=== PATIENT | female | born 2005 | race Caucasian/White ===

== ENCOUNTER 2024-08-04 19:03 | Emergency (ER) | payer SELFPAY ==
[2024-08-04] MEDS ORDERED: HYDROCODONE/APAP 5/325 MG TAB ONE (19:41)
[2024-08-04] MEDS ORDERED: AMOX/K CLAV 875 MG TAB ONE (19:41)
--- NOTE | 2024-08-04 19:41 | ER ---
Nurse's Notes [facility] Name: Liz Woo Age: 19 yrs Sex: Female : 2005 Arrival Date: 08/04/2024 Time: 19:03 Bed IW4 Private MD: Diagnosis: Acute serous otitis media, right ear Presentation: 08/04 19:34 Chief complaint: Patient states: Right ear pain onset 4 days ago that got worse last cm10 night. Coronavirus screen: Client denies travel out of the [place] in the last 14 days. Ebola Screen: Patient denies travel to an Ebola-affected area in the 21 days before illness onset. No symptoms or risks identified at this time. Initial Sepsis Screen: Does the patient meet any 2 criteria? HR > 90 bpm. Does the patient have a suspected source of infection? No. Patient's initial sepsis screen is negative. Risk Assessment: Do you want to hurt yourself or someone else? Patient reports no desire to harm self or others. Onset of symptoms was July 31, 2024. 19:34 Method Of Arrival: Ambulatory cm10 19:34 Acuity: ALICJA 4 cm10 Triage Assessment: 19:37 General: Appears in no apparent distress. comfortable, Behavior is calm, cooperative. cm10 Pain: Complains of pain in right ear Pain currently is 6 out of 10 on a pain scale. Quality of pain is described as pressure, Pain began 2-3 days ago. EENT: Reports pain in right ear. Neuro: No deficits noted. Level of Consciousness is awake, alert, obeys commands, Oriented to person, place, time, situation, Appropriate for age. Respiratory: No deficits noted. Airway is patent Respiratory effort is even, unlabored, Respiratory pattern is regular, symmetrical. Musculoskeletal: No deficits noted. Range of motion: intact in all extremities. 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 - Infectious Disease History:: Denies. - Social history:: Smoking status: Patient reports the use of cigarette tobacco products, smokes one-half pack cigarettes per day. Screenin:37 [facility] ED Fall Risk Assessment (Adult) History of falling in the last 3 months, cm10 including since admission No falls in past 3 months (0 pts) Confusion or Disorientation No (0 pts) Intoxicated or Sedated No (0 pts) Impaired Gait No (0 pts) Mobility Assist Device Used No (0 pt) Altered Elimination No (0 pt) Score/Fall Risk Level 0 - 2 = Low Risk Oriented to surroundings, Maintained a safe environment, Hourly rounding (assess needs \T\ fall precautionary measures) done. Abuse screen: Denies threats or abuse. Denies injuries from another. Nutritional screening: No deficits noted. Tuberculosis screening: No symptoms or risk factors identified. Vital Signs: 19:34 BP 137 / 88; Pulse 91; Resp 16; Temp 98(IR); Pulse Ox 95% on R/A; Weight 63.5 kg; cm10 Height 5 ft. 6 in. ; Pain 6/10; 19:34 Body Mass Index 22.60 (63.50 kg, 167.64 cm) cm10 19:34 Pain Scale: Adult cm10 ED Course: 19:06 Patient arrived in ED. ra3 19:14 Charo Ceballos PA-C is PHCP. sb4 19:14 David Olmstead MD is Attending Physician. sb4 19:35 Triage completed. cm10 19:36 Arm band placed on right wrist. Patient placed in waiting room. cm10 19:38 Patient has correct armband on for positive identification. Provided Education on: ER cm10 process and procedures.. Cardiac monitoring not applicable on this patient. 19:48 No provider procedures requiring assistance completed. Patient did not have IV access cm10 during this emergency room visit. Administered Medications: 19:47 Drug: HYDROcodone-acetaminophen PO 5 mg-325 mg 1 tabs PO once Route: PO; cm10 19:47 Follow up: Response: Medication administered at discharge. cm10 19:47 Drug: Amoxicillin-Clavulanate PO 875 mg PO once Route: PO; cm10 19:47 Follow up: Response: Medication administered at discharge. cm10 Medication: 19:37 VIS not applicable for this client. cm10 Outcome: 19:41 Discharge ordered by . sb4 19:48 Discharged to home ambulatory, with significant other, cm10 19:48 Condition: good 19:48 Discharge instructions given to patient, Instructed on discharge instructions, follow up and referral plans. medication usage, Demonstrated understanding of instructions, follow-up care, medications, Prescriptions given X 1, 19:48 Patient left the ED. cm10 Signatures: Charo Ceballos PA-C PA-C sb4 Eileen Nassar RN RN cm10 Viry Anna ra3 Corrections: (The following items were deleted from the chart) 19:36 19:35 PMHx: None; cm10 cm10
--- NOTE | 2024-08-04 19:41 | EDPHYS ---
Physician Documentation [facility] [place] Name: Liz Woo Age: 19 yrs Sex: Female : 2005 Arrival Date: 08/04/2024 Time: 19:03 Bed IW4 Private MD: ED Physician David Olmstead HPI: 08/04 20:12 This 19 yrs old Female presents to ER via Ambulatory with complaints of Ear Pain. sb4 20:15 The patient presents with pain, that is acute. The complaints affect the right ear. sb4 Onset: The symptoms/episode began/occurred 2 day(s) ago. Modifying factors: The symptoms are alleviated by covering ear, the symptoms are aggravated by loud noise, touching. Associated signs and symptoms: Pertinent positives: tinnitus, rhinorrhea, sinus trouble. The patient has experienced similar episodes in the past, several times, as a child. The patient has not recently seen a physician. 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 - Infectious Disease History:: Denies. - Social history:: Smoking status: Patient reports the use of cigarette tobacco products, smokes one-half pack cigarettes per day. ROS: 20:15 Constitutional: Negative for fever, chills, and weight loss, sb4 20:15 ENT: Positive for ear pain, sinus congestion, 20:15 All other systems are negative, Exam: 20:15 Head/Face: Normocephalic, atraumatic. Eyes: Extra-ocular motions intact. Periorbital sb4 areas with no swelling, redness, or edema. Skin: Warm, dry with normal turgor. Normal color with no rashes, no lesions, and no evidence of cellulitis. MS/ Extremity: Pulses equal, no cyanosis. Neurovascular intact. Full, normal range of motion. 20:15 Constitutional: The patient appears alert, awake, uncomfortable, 20:15 ENT: Ear canal(s): swelling, that is minimal, of the right canal, TM's: bulging, on the right, erythema, that is moderate, on the right, Examination of the other ear shows no obvious abnormality, Vital Signs: 19:34 BP 137 / 88; Pulse 91; Resp 16; Temp 98(IR); Pulse Ox 95% on R/A; Weight 63.5 kg; cm10 Height 5 ft. 6 in. ; Pain 6/10; 19:34 Body Mass Index 22.60 (63.50 kg, 167.64 cm) cm10 19:34 Pain Scale: Adult cm10 MDM: 19:17 Medical Screening Exam initiated sb4 20:15 Data reviewed: vital signs, nurses notes, and as a result, I will discharge patient. sb4 Counseling: I had a detailed discussion with the patient and/or guardian regarding the historical points, exam findings, and any diagnostic results supporting the discharge/admit diagnosis, the presence of at least one elevated blood pressure reading (>120/80) during this emergency department visit, the need for outpatient follow up, for definitive care, to return to the emergency department if symptoms worsen or persist or if there are any questions or concerns that arise at home. Administered Medications: 19:47 Drug: HYDROcodone-acetaminophen PO 5 mg-325 mg 1 tabs PO once Route: PO; cm10 19:47 Follow up: Response: Medication administered at discharge. cm10 19:47 Drug: Amoxicillin-Clavulanate PO 875 mg PO once Route: PO; cm10 19:47 Follow up: Response: Medication administered at discharge. cm10 Disposition Summary: 08/04/24 19:41 Discharge Ordered Notes: Location: Home sb4 Problem: new sb4 Symptoms: have improved sb4 Condition: Stable sb4 Diagnosis - Acute serous otitis media, right ear sb4 Followup: sb4 - With: Emergency Department - When: As needed - Reason: Fever > 102 F, Worsening of condition Discharge Instructions: - Discharge Summary Sheet sb4 - Otitis Media, Adult sb4 Forms: - Antibiotic Education sb4 - Patient Portal Instructions sb4 - Leadership Thank You Letter sb4 Prescriptions: - Amoxicillin 875 mg Oral tablet - take 1 tablet ORAL route every 12 hours for 7 days; 14 tablet; Refills: 0, sb4 Product Selection Permitted Signatures: Charo Ceballos PA-C PA-C sb4 Eileen Nassar RN RN cm10 Corrections: (The following items were deleted from the chart) 19:36 19:35 PMHx: None; cm10 cm10
[2024-08-05 01:15] VITALS: BP 137/88; TEMP 98; O2SAT 95
== END 2024-08-04 19:48 | disposition home or self-care (01) ==
LOC: ER 19:03
DX: H65.01 Acute serous otitis media, right ear (principal); F17.210 Nicotine dependence, cigarettes, uncomplicated
CPT/HCPCS: 99283

== ENCOUNTER 2025-01-13 07:02 | Emergency (ER) | payer OTHER, SELFPAY ==
[2025-01-13 08:10] LABS: Specific Gravity 1.014 (1.005-1.030)
[2025-01-13 08:11] LABS: Absolute Lymphocytes (CBC) 1.6 K/uL (0.7-4.9); Absolute Monocytes 0.4 K/uL (0.1-1.3); Absolute Neutrophil 9.5 K/uL (1.8-8.0); Basophils % 0.3 % (0-1.3); Eosinophils % 0.3 % (0-4.4); Hematocrit 32.8 % (36.0-45.0); Hemoglobin 11.3 g/dL (12.0-15.0); Lymphocytes % 13.6 % (15.3-44.8); MCH 30.6 pg (27.0-35.0); MCHC 34.4 g/dL (32.0-36.0); MCV 89.2 fL (80-100); MPV 8.7 fL (7.6-11.3); Monocytes % 3.1 % (3.3-12.3); Neutrophils % 82.7 % (41.7-73.7); Nucleated Red Blood Cells % 0.1 % (0-0); Platelets 218 thou/uL (152-406); RBC Red Blood Cell Count 3.67 M/uL (3.86-4.86)
[2025-01-13 08:11] LABS: Specific Gravity 1.014 (1.005-1.030); Sqamous Epithelial <5 /HPF (None Seen); Urine Bacteria <20 /HPF (<20); Urine Bilirubin NEGATIVE (Negative); Urine Blood 2+ (Negative); Urine Clarity Turbid (Clear); Urine Color Light-Yellow (Yellow); Urine Culture Reflex Order NOT NEEDED; Urine Glucose NEGATIVE (Negative); Urine Ketones NEGATIVE (Negative); Urine Microscopic Reflex YN ORDER UMIC; Urine Nitrite NEGATIVE (Negative); Urine Protein NEGATIVE (Negative); Urine RBC <5 /HPF (None Seen); Urine Urobilinogen Normal (Normal); Urine WBC <5 /HPF (<5); Urine pH 7.5 (5.0-7.0)
--- NOTE | 2025-01-13 08:30 | RAD REPORT ---
EXAMINATION: US OB Limited COMPARISON: None. HISTORY: [facility] MAIN ABD CRAMPING, Bed Name: 5 TECHNIQUE: Real-time ultrasound was performed through the pelvis. A transvaginal scan was performed t o better visualize the intrauterine contents and adnexa. FINDINGS: There is a single living intrauterine . There is no visible collection/hemorrhage. Uterine contraction anteriorly. Cervical canal closed, shadowing prevents optimal visualization. Ovaries not well visualized. anatomy not well assessed, recommend follow-up formal assessment at the time of anatomical feta l survey (20 weeks gestation). There is no free fluid in the cul-de-sac. Measurements and Calculations: Femur length 2.42 cm, consistent with a sonographic age of 17 weeks, 2 days. The patient's LMP dates are not stated. heart rate: 138 BPM. IMPRESSION: Single living intrauterine , with a composite sonographic age of 17 weeks, 2 days. No discrete abnormalities.
[2025-01-13 08:42] LABS: Anion Gap 7.7 mEq/L (5.0-15.0); Potassium 3.7 mEq/L (3.5-5.1)
--- NOTE | 2025-01-13 08:48 | RAD REPORT ---
EXAMINATION: US Abdomen Exam Limited CLINICAL HISTORY: ABD CRAMPING, COMPARISON: None. TECHNIQUE: Limited upper abdominal grayscale and color flow sonographic images. FINDINGS: Gallbladder: Layering sludge with punctate hypoechogenicities. No sizable echogenic calculi. No peric holecystic fluid or wall thickening. No reported positive sonographic Sabillon's sign. Bile ducts: No intrahepatic or extrahepatic biliary dilatation. Common bile duct measures 1 mm. Liver: Visualized portions of the liver demonstrate normal echogenicity with no suspicious findings. Fluid: No ascites. IMPRESSION: Gallbladder sludge with punctate hypoechogenicities suggesting gravel or tiny calculi. No other abnor malities on right upper quadrant ultrasound.
[2025-01-13] MEDS ORDERED: NA CHLORIDE 0.9% 1,000 ML ONE (09:28)
[2025-01-13 09:45] LABS: Albumin 3.2 g/dL (3.4-5.0); Albumin/Globulin Ratio 0.9 (1.1-1.8); Alkaline Phosphatase 45 U/L (45-117); Bilirubin Total 0.4 mg/dL (0.2-1.0); Globulin 3.5 g/dL (2.3-3.5); Protein, Total 6.7 g/dL (6.4-8.2)
[2025-01-13 09:52] LABS: ALT/SGPT < 14 U/L (13-56); AST/SGOT < 10 U/L (15-37); Bilirubin Direct < 0.2 mg/dL (0-0.2); Bilirubin Indirect, Calculated 0.2 mg/dL (0.2-0.8)
--- NOTE | 2025-01-13 10:03 | EDPHYS ---
Physician Documentation [facility] Name: Liz Woo Age: 19 yrs Sex: Female : 2005 Arrival Date: 01/13/2025 Time: 07:02 Bed 5 Private MD: Amrik Sandra HPI: 01/13 09:00 This 19 yrs old Female presents to ER via Ambulatory with complaints of david Vaginal Bleeding, 16 WEEKS PREG. 09:00 The patient presents with vaginal bleeding that is spotting. Onset: The david symptoms/episode began/occurred 1 day(s) ago. Modifying factors: The symptoms are alleviated by nothing, the symptoms are aggravated by nothing. Associated signs and symptoms: The patient has no apparent associated signs or symptoms. Severity of symptoms: At their worst the symptoms were mild, in the emergency department the symptoms are unchanged. The patient presents to the emergency department with vaginal bleeding. The estimated gestational age is 16 weeks. 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 - Infectious Disease History:: Denies. - Social history:: Smoking status: Patient denies any tobacco usage or history of. - Family history:: not pertinent. ROS: 09:00 Constitutional: Negative for fever, chills, and weight loss, Eyes: Negative for injury, david pain, redness, and discharge, ENT: Negative for injury, pain, and discharge, Neck: Negative for injury, pain, and swelling, Cardiovascular: Negative for chest pain, palpitations, and edema, Respiratory: Negative for shortness of breath, cough, wheezing, and pleuritic chest pain, Back: Negative for injury and pain, MS/Extremity: Negative for injury and deformity, Skin: Negative for injury, rash, and discoloration, Neuro: Negative for headache, weakness, numbness, tingling, and seizure, Psych: Negative for depression, anxiety, suicide ideation, homicidal ideation, and hallucinations, Allergy/Immunology: Negative for hives, rash, and allergies, Endocrine: Negative for neck swelling, polydipsia, polyuria, polyphagia, and marked weight changes, Hematologic/Lymphatic: Negative for swollen nodes, abnormal bleeding, and unusual bruising, 09:00 Abdomen/GI: Positive for abdominal distension, 09:00 : Positive for hematuria, Exam: 09:00 Constitutional: This is a well developed, well nourished patient who is awake, alert, david and in no acute distress. Head/Face: Normocephalic, atraumatic. Eyes: Pupils equal round and reactive to light, extra-ocular motions intact. Lids and lashes normal. Conjunctiva and sclera are non-icteric and not injected. Cornea within normal limits. Periorbital areas with no swelling, redness, or edema. ENT: Nares patent. No nasal discharge, no septal abnormalities noted. Tympanic membranes are normal and external auditory canals are clear. Oropharynx with no redness, swelling, or masses, exudates, or evidence of obstruction, uvula midline. Mucous membranes moist. Neck: Trachea midline, no thyromegaly or masses palpated, and no cervical lymphadenopathy. Supple, full range of motion without nuchal rigidity, or vertebral point tenderness. No Meningismus. Chest/axilla: Normal chest wall appearance and motion. Nontender with no deformity. No lesions are appreciated. Cardiovascular: Regular rate and rhythm with a normal S1 and S2. No gallops, murmurs, or rubs. Normal PMI, no JVD. No pulse deficits. Respiratory: Lungs have equal breath sounds bilaterally, clear to auscultation and percussion. No rales, rhonchi or wheezes noted. No increased work of breathing, no retractions or nasal flaring. Back: No spinal tenderness. No costovertebral tenderness. Full range of motion. Skin: Warm, dry with normal turgor. Normal color with no rashes, no lesions, and no evidence of cellulitis. MS/ Extremity: Pulses equal, no cyanosis. Neurovascular intact. Full, normal range of motion., bilateral aka Neuro: Awake and alert, GCS 15, oriented to person, place, time, and situation. Cranial nerves II-XII grossly intact. Motor strength 5/5 in all extremities. Sensory grossly intact. Cerebellar exam normal. Normal gait. Psych: Awake, alert, with orientation to person, place and time. Behavior, mood, and affect are within normal limits. 09:00 Abdomen/GI: Inspection: gravid appearance, is noted, Bowel sounds: normal, Palpation: abdomen is soft and non-tender, Liver: no appreciated palpable abnormalities, Hernia: not appreciated, Vital Signs: 07:22 BP 111 / 60; Pulse 75; Resp 17; Temp 97.9; Pulse Ox 100% ; Weight 66.22 kg; Height 5 jl7 ft. 5 in. ; Pain 2; 07:22 Body Mass Index 24.30 (66.22 kg, 165.1 cm) [facility] 07:22 Pain Scale: Adult jl7 MDM: 07:15 Medical Screening Exam initiated [facility] 09:05 Differential diagnosis: Data reviewed: vital signs, nurses notes, lab test result(s), [facility] radiologic studies, ultrasound. Consideration of Admission/Observation Escalation of care including admission/observation considered. I considered the following discharge prescriptions or medication management in the emergency department Medications were administered in the Emergency Department. See 07:11 Order name: Abo/rh Typing; Complete Time: 08:44 [facility] 01/13 07:11 Order name: Basic Metabolic Panel; Complete Time: 08:44 [facility] 01/13 07:11 Order name: CBC with Diff; Complete Time: 08:44 [facility] 01/13 07:11 Order name: Test, Urine; Complete Time: 08:44 [facility] 01/13 07:11 Order name: Urinalysis w/ reflexes; Complete Time: 08:44 [facility] 01/13 07:11 Order name: Quantitative Hcg; Complete Time: 08:44 [facility] 01/13 07:11 Order name: Lipase; Complete Time: 08:44 [facility] 01/13 08:59 Order name: LFT's; Complete Time: 10:02 [facility] 01/13 07:11 Order name: US Abdomen Limited; Complete Time: 08:59 [facility] 01/13 07:15 Order name: US OB Limited; Complete Time: 08:44 [facility] 01/13 07:11 Order name: IV Saline Lock; Complete Time: 08:09 [facility] 01/13 07:11 Order name: Labs collected and sent; Complete Time: 08:09 [facility] 01/13 07:11 Order name: NPO; Complete Time: 08:09 david Administered Medications: 09:30 Drug: NS 0.9% IV 1000 ml IV at 1000 ml once; to be given as a bolus over 60 minutes iw Route: IV; Rate: 1000 ml; Site: left antecubital; Disposition Summary: 01/13/25 10:02 Discharge Ordered Notes: Location: Home david Problem: new david Symptoms: have improved david Condition: Fair david Diagnosis - 18 weeks gestation of david - Other cholelithiasis without obstruction david Followup: david - With: Private Physician - When: 2 - 3 days - Reason: Recheck today's complaints, Continuance of care, Re-evaluation by your physician Discharge Instructions: - Discharge Summary Sheet david - Care david - Cholelithiasis david - Cholelithiasis, [id number] david - Second Trimester of david - Second Trimester of , [id number] david Forms: - Medication Reconciliation Form david - Antibiotic Education david - Prescription Opioid Use david - Patient Portal Instructions david - Leadership Thank You Letter david Signatures: Dispatcher [employer] Amrik Myers MD MD cha Williams, Irene, RN RN iw Iris Vazquez RN RN jl7 Corrections: (The following items were deleted from the chart) 07:11 07:11 ABO/RH TYPING+BB.LAB.BRZ ordered. EDMS EDMS 07:11 07:11 BASIC METABOLIC PANEL+C.LAB.BRZ ordered. EDMS EDMS 07:11 07:11 CBC+H.LAB.BRZ ordered. EDMS EDMS 07:11 07:11 Test, Urine+UC.LAB.BRZ ordered. EDMS EDMS 07:11 07:11 Urinalysis+U.LAB.BRZ ordered. EDMS EDMS 07:11 07:11 QUANTITATIVE HCG+C.LAB.BRZ ordered. EDMS EDMS 07:11 07:11 LIPASE+C.LAB.BRZ ordered. EDMS EDMS 07:11 07:11 Abdomen Limited+US.RAD.BRZ ordered. EDMS EDMS
--- NOTE | 2025-01-13 10:03 | ER ---
Nurse's Notes [facility] [place] Name: Liz Woo Age: 19 yrs Sex: Female : 2005 Arrival Date: 01/13/2025 Time: 07:02 Bed 5 Private MD: Diagnosis: 18 weeks gestation of ;Other cholelithiasis without obstruction Presentation: 01/13 07:22 Chief complaint: Patient states: Woke this morning with brown/red vaginal discharge and jl7 a clot fell out, pelvic cramping, 16 weeks . Coronavirus screen: At this time, the client does not indicate any symptoms associated with coronavirus-19. Ebola Screen: No symptoms or risks identified at this time. Initial Sepsis Screen: Does the patient meet any 2 criteria? No. Patient's initial sepsis screen is negative. Does the patient have a suspected source of infection? No. Patient's initial sepsis screen is negative. Risk Assessment: Do you want to hurt yourself or someone else? Patient reports no desire to harm self or others. Onset of symptoms was January 13, 2025. 07:22 Method Of Arrival: Ambulatory [facility] 07:22 Acuity: ALICJA 3 jl7 Triage Assessment: 07:24 General: Appears in no apparent distress. uncomfortable, Behavior is calm, cooperative, jl7 appropriate for age. Pain: Complains of pain in right lower quadrant and left lower quadrant Pain currently is 2 out of 10 on a pain scale. Quality of pain is described as crampy. Neuro: Level of Consciousness is awake, alert, obeys commands, Oriented to person, place, time, situation. Cardiovascular: Patient's skin is warm and dry. Respiratory: Airway is patent Respiratory effort is even, unlabored, Respiratory pattern is regular, symmetrical. GI:. : Reports cramping, in bilateral lower quadrant(s) vaginal bleeding that is brown, with clots. Derm: No signs and/or symptoms reported regarding the dermatologic system. 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 - Infectious Disease History:: Denies. - Social history:: Smoking status: Patient denies any tobacco usage or history of. - Family history:: not pertinent. Screenin:10 [facility] ED Fall Risk Assessment (Adult) History of falling in the last 3 months, iw including since admission No falls in past 3 months (0 pts) Confusion or Disorientation No (0 pts) Intoxicated or Sedated No (0 pts) Impaired Gait No (0 pts) Mobility Assist Device Used No (0 pt) Altered Elimination No (0 pt) Score/Fall Risk Level 0 - 2 = Low Risk Oriented to surroundings, Maintained a safe environment. Abuse screen: Denies threats or abuse. Nutritional screening: No deficits noted. Tuberculosis screening: No symptoms or risk factors identified. Assessment: 08:09 General: Appears in no apparent distress. Behavior is calm, cooperative. Pain: iw Complains of pain in left lower quadrant and right lower quadrant. Neuro: Level of Consciousness is awake, alert, obeys commands, Oriented to person, place, time, situation, Moves all extremities. Full function. GI: Abd is soft X 4 quads. : Reports vaginal bleeding that is brown, spotty. Vital Signs: 07:22 BP 111 / 60; Pulse 75; Resp 17; Temp 97.9; Pulse Ox 100% ; Weight 66.22 kg; Height 5 jl7 ft. 5 in. ; Pain 210; 07:22 Body Mass Index 24.30 (66.22 kg, 165.1 cm) jl7 07:22 Pain Scale: Adult jl7 ED Course: 07:05 Patient arrived in ED. gm2 07:08 Amrik Gonzalez MD is Attending Physician. david 07:24 Triage completed. jl7 07:24 Arm band placed on right wrist. jl7 07:39 US OB Limited In Process Unspecified. EDMS 07:41 US Abdomen Limited In Process Unspecified. EDMS 07:51 Tanner Wayne, RN is Primary Nurse. bp 08:09 Initial lab(s) drawn, by me, sent to lab. Inserted saline lock: 20 gauge in left iw antecubital area, using aseptic technique. Blood collected. Flushed with 10 mL NS. 08:10 Patient has correct armband on for positive identification. Provided Education on: lab iw wait time . 08:10 No provider procedures requiring assistance completed. iw Administered Medications: 09:30 Drug: NS 0.9% IV 1000 ml IV at 1000 ml once; to be given as a bolus over 60 minutes iw Route: IV; Rate: 1000 ml; Site: left antecubital; Medication: 08:10 VIS not applicable for this client. iw Outcome: 10:02 Discharge ordered by . david 10:39 Patient left the ED. iw Signatures: Dispatcher [employer] EDMS Amrik Gonzalez MD MD cha Williams, Irene RN XIAO iw Iris Vazquez RN RN jl7 Tanner Wayne RN RN Caroline Acosta 2
[2025-01-13 10:55] VITALS: BP 111/60; TEMP 97.9; O2SAT 100
== END 2025-01-13 10:39 | disposition home or self-care (01) ==
LOC: ER 07:02
DX: O99.612 Diseases of the digestive system complicating pregnancy, second trimester (principal); K80.80 Other cholelithiasis without obstruction; Z3A.18 18 weeks gestation of pregnancy
CPT/HCPCS: 85025; 81001; 80048; 36415; 86900; 81025; 86901; 80076; 84702; 83690; 76705; 76815; 99284; J7030